=== PATIENT | male | born 1985 ===

== ENCOUNTER 2018-05-23 07:00 | Emergency (ER) | payer MEDICAID ==
[2018-05-23 07:15] VITALS: RESP 18; TEMP 97.9; O2SAT 100
[2018-05-23] MEDS ORDERED: Sodium Chloride 0.9% 1,000 ML IV STA (07:46)
[2018-05-23] MEDS ORDERED: Iohexol 240 (50 ml) PO ONE (07:52)
[2018-05-23 08:01] LABS: BASO % 0.2 % (0.0-2.0); EOS # 0.1 K/uL (0.0-0.7); EOS % 1.1 % (0.0-4.0); LYMPH # 0.7 K/uL (1.0-4.3); LYMPH % 9.6 % (20.0-40.0); MEAN CELL VOLUME 90.9 fl (80.0-94.0); MEAN CORPUSCULAR HEMOGLOBIN 30.4 pg (27.0-31.0); MEAN CORPUSCULAR HGB CONC 33.4 g/dL (33.0-37.0); MEAN PLATELET VOLUME 7.9 fl (7.2-11.7); MONO # 0.4 K/uL (0.0-0.8); MONO % 5.8 % (0.0-10.0); NEUT # 5.8 K/uL (1.8-7.0); NEUT % 83.3 % (50.0-75.0); PLATELET COUNT 252 K/uL (130-400); RBC 4.94 Mil/uL (4.40-5.90); RED CELL DISTRIBUTION WIDTH 13.1 % (11.5-14.5); WHITE BLOOD COUNT 6.9 K/uL (4.8-10.8)
[2018-05-23] MEDS ORDERED: Iohexol 240 (50 ml) ONE (08:06)
[2018-05-23 08:18] LABS: ALB/GLOB RATIO 1.4 (1.0-2.1); ALBUMIN 4.4 g/dL (3.5-5.0); ALT/SGPT 34 U/L (21-72); AST/SGOT 22 U/L (17-59); BLOOD UREA NITROGEN 28 mg/dl (9-20); CALCIUM 9.3 mg/dL (8.4-10.2); GFR NON-AFRICAN AMERICAN > 60; LIPASE 79 U/L (23-300)
[2018-05-23] MEDS ORDERED: Iohexol 300 100 ML IJ ONE (10:22)
[2018-05-23] MEDS ORDERED: Sodium Chloride 0.9% 50 ML IV ONE (10:22)
[2018-05-23 11:27] LABS: EOSINOPHIL 1 % (0-7); LYMPHOCYTE 11 % (20-50); MONOCYTE 3 % (0-10); NEUTROPHIL 85 % (42-75); PLATELET ESTIMATE NORMAL (NORMAL); TOTAL CELLS COUNTED 100
--- NOTE | 2018-05-23 11:28 | CT ---
Date of service: 05/23/2018 PROCEDURE: CT Abdomen and Pelvis with contrast HISTORY: vomiting RLQ pain COMPARISON: None. TECHNIQUE: Contrast dose: 95 cc Omnipaque 300 with 40 cc saline flush Radiation dose: Total exam DLP = 273.39 mGy-cm. This CT exam was performed using one or more of the following dose reduction techniques: Automated exposure control, adjustment of the mA and/or kV according to patient size, and/or use of iterative reconstruction technique. FINDINGS: LOWER THORAX: Unremarkable. LIVER: Mild diffuse fatty infiltration of the liver suggested No gross lesion or ductal dilatation. GALLBLADDER AND BILE DUCTS: Unremarkable. PANCREAS: Unremarkable. No gross lesion or ductal dilatation. SPLEEN: Unremarkable. ADRENALS: Unremarkable. No mass. KIDNEYS AND URETERS: There is minimal asymmetrical fullness to the right intra and extra renal pelvis no obstructing calculus here seen. The distal ureters are difficult to track completely more distally VASCULATURE: Bilateral hemipelvic phleboliths. No distal hydroureter to suggest otherwise. No aortic aneurysm. No aortic atherosclerotic calcification or mural plaque present. BOWEL: Some of the proximal small bowel loops minimal fullness and minimal prominence to their valvular con of on the appearance-no high-grade obstruction seen. A mild enteritis here is 1 consideration. Top normal variant is another. No obstruction. No gross eccentric mural thickening. APPENDIX: Normal appendix. PERITONEUM: Unremarkable. No free fluid. No free air. LYMPH NODES: Unremarkable. No enlarged lymph nodes. BLADDER: Unremarkable. REPRODUCTIVE: Prostate is unremarkable. There is asymmetry of the visualized portions of the scrotal contents. The right being more conspicuous and prominent-for this consider scrotal ultrasound. BONES: No acute fracture. OTHER FINDINGS: None. IMPRESSION: No CT evidence of appendicitis appreciated. Minimal-mild right intra and extra renal pelviectasis without obstructing calculus seen. Correlate clinically Other findings as above.
--- NOTE | 2018-05-23 11:55 | ED PDOC ---
HPI: Abdomen Time Seen by Provider: 05/23/18 07:29 Chief Complaint (Nursing): GI Problem Chief Complaint (Provider): vomiting abd pain History Per: Patient History/Exam Limitations: no limitations Location Of Pain/Discomfort: Diffuse, RLQ Quality Of Discomfort: Cramping Associated Symptoms: Chills, Nausea, Vomiting, Diarrhea, Loss Of Appetite Last Bowel Movement: Today Additional Complaint(s): 32yo male c/o abd pain R>L ongoing since last night associated w vomiting and loss appetite, loose stools, chills last night. Thinks possibly related to something he ate in half-way. Past Medical History Reviewed: Historical Data, Nursing Documentation, Vital Signs Vital Signs: Last Vital Signs Temp 97.9 F 05/23/18 07:23 Pulse 85 05/23/18 07:23 Resp 18 05/23/18 07:23 BP 114/80 05/23/18 07:23 Pulse Ox 100 05/23/18 07:23 - Medical History PMH: No Chronic Diseases - Surgical History Surgical History: Denies: Appendectomy - Family History Family History: States: Unknown Family Hx - Living Arrangements Living Arrangements: Other - Social History Alcohol: None - Home Medications Home Medications: Ambulatory Orders Medication Instructions Recorded Ibuprofen [Motrin Tab] 600 mg PO Q6 PRN #15 tab 05/23/18 Ondansetron ODT [Zofran ODT] 4 mg PO Q6 PRN #10 odt 05/23/18 - Allergies Allergies/Adverse Reactions: Allergies Allergy/AdvReac Type Severity Reaction Status Date / Time No Known Allergies Allergy Verified 05/23/18 07:25 Review of Systems Constitutional: Positive for: Chills ENT: Negative for: Nose Discharge Cardiovascular: Negative for: Chest Pain Respiratory: Negative for: Cough, Shortness of Breath Gastrointestinal: Positive for: Nausea, Abdominal Pain Genitourinary Male: Negative for: Dysuria Musculoskeletal: Negative for: Neck Pain Skin: Negative for: Rash Neurological: Negative for: Weakness Psych: Negative for: Anxiety Physical Exam - Reviewed Nursing Documentation Reviewed: Yes Vital Signs Reviewed: Yes - Physical Exam Appears: Positive for: Well, Non-toxic, No Acute Distress Head Exam: Positive for: ATRAUMATIC, NORMAL INSPECTION, NORMOCEPHALIC Skin: Positive for: Normal Color, Warm, DRY Eye Exam: Positive for: EOMI, Normal appearance, PERRL ENT: Positive for: Normal ENT Inspection Neck: Positive for: Normal, Painless ROM Cardiovascular/Chest: Positive for: Regular Rate, Rhythm Respiratory: Positive for: CNT, Normal Breath Sounds Gastrointestinal/Abdominal: Positive for: Soft, Tenderness (R>L). Negative for: Guarding Back: Positive for: Normal Inspection Extremity: Positive for: Normal ROM Neurologic/Psych: Positive for: Alert, Oriented - Laboratory Results Result Diagrams: 05/23/18 07:54 05/23/18 07:54 Lab Results: Total Bilirubin 0.6 mg/dl (0.2-1.3) 05/23/18 07:54 AST 22 U/L (17-59) 05/23/18 07:54 ALT 34 U/L (21-72) 05/23/18 07:54 Alkaline Phosphatase 61 U/L (38-126) 05/23/18 07:54 Total Protein 7.5 G/DL (6.3-8.2) 05/23/18 07:54 Albumin 4.4 g/dL (3.5-5.0) 05/23/18 07:54 Globulin 3.1 gm/dL (2.2-3.9) 05/23/18 07:54 Albumin/Globulin Ratio 1.4 (1.0-2.1) 05/23/18 07:54 Lipase 79 U/L (23-300) 05/23/18 07:54 - ECG O2 Sat by Pulse Oximetry: 100 Pulse Ox Interpretation: Normal Medical Decision Making Medical Decision Making: labs unremarkable Accession No. : [id number] Patient Name / ID : FAY GOLD / [id number] Exam Date : 05/23/2018 10:33:04 ( Approved ) Study Comment : Sex / Age : M / 32Y Creator : Hazel Garcia Dictator : Hazel Garcia Community Health Advocate : Rice Farmer : Hazel Garcia Approver2 : Report Date : 05/23/2018 11:24:46 My Comment : Date of service: 05/23/2018 PROCEDURE: CT Abdomen and Pelvis with contrast HISTORY: vomiting RLQ pain COMPARISON: None. TECHNIQUE: Contrast dose: 95 cc Omnipaque 300 with 40 cc saline flush Radiation dose: Total exam DLP = 273.39 mGy-cm. This CT exam was performed using one or more of the following dose reduction techniques: Automated exposure control, adjustment of the mA and/or kV according to patient size, and/or use of iterative reconstruction technique. FINDINGS: LOWER THORAX: Unremarkable. LIVER: Mild diffuse fatty infiltration of the liver suggested No gross lesion or ductal dilatation. GALLBLADDER AND BILE DUCTS: Unremarkable. PANCREAS: Unremarkable. No gross lesion or ductal dilatation. SPLEEN: Unremarkable. ADRENALS: Unremarkable. No mass. KIDNEYS AND URETERS: There is minimal asymmetrical fullness to the right intra and extra renal pelvis no obstructing calculus here seen. The distal ureters are difficult to track c ompletely more distally VASCULATURE: Bilateral hemipelvic phleboliths. No distal hydroureter to suggest otherwise. No aortic aneurysm. No aortic atherosclerotic calcification or mural plaque present. BOWEL: Some of the proximal small bowel loops minimal fullness and minimal prominence to their valvular con of on the appearance-no high-grade obstruction seen. A mild enteritis here is 1 consideration. Top normal variant is another. No obstruction. No gross eccentric mural thickening. APPENDIX: Normal appendix. PERITONEUM: Unremarkable. No free fluid. No free air. LYMPH NODES: Unremarkable. No enlarged lymph nodes. BLADDER: Unremarkable. REPRODUCTIVE: Prostate is unremarkable. There is asymmetry of the visualized portions of the scrotal contents. The right being more conspicuous and prominent-for this consider scrotal ultrasound. BONES: No acute fracture. OTHER FINDINGS: None. IMPRESSION: No CT evidence of appendicitis appreciated. Minimal-mild right intra and extra renal pelviectasis without obstructing calculus seen. Correlate clinically Other findings as above. denies testicular pain Recommended outpatient US testes nonemergently Tolerating PO in ED Rx zofran and motrin, bland diet, followup PMD Disposition - Clinical Impression Clinical Impression: Gastroenteritis - Patient ED Disposition Is Patient to be Admitted: No Counseled Patient/Family Regarding: Studies Performed, Diagnosis, Need For Followup - Disposition Referrals: [facility] [Outside] Disposition: Routine/Home Disposition Time: 11:54 Additional Instructions: Recommend outpatient ultrasound of your testicles for slight asymmetry seen on CT scan. Followup with clinic for scheduling of this. Return to ER for any worse or new symptoms Prescriptions: Ibuprofen [Motrin Tab] 600 mg PO Q6 PRN #15 tab PRN Reason: Pain, Moderate (4-7) Ondansetron ODT [Zofran ODT] 4 mg PO Q6 PRN #10 odt PRN Reason: Nausea/Vomiting Instructions: Gastroenteritis (ED) Forms: [employer] (Japanese)
[2018-05-23 12:31] VITALS: BP 110/66; PULSE 67
== END 2018-05-23 11:55 | disposition home or self-care (01) ==
LOC: H.ER 07:00
DX: K52.9 Noninfective gastroenteritis and colitis, unspecified (principal)
CPT/HCPCS: 74177; 80053; 80320; 83690; 85025; 96361; 96374; 96375; 99284; J1885; J2405; J7030; Q9966; Q9967

== ENCOUNTER 2018-05-24 11:30 | Emergency (ER) | payer MEDICAID ==
[2018-05-24 11:38] VITALS: BMI 22.7
[2018-05-24 11:40] VITALS: O2SAT 100
--- NOTE | 2018-05-24 13:23 | ED PDOC ---
HPI: General Adult Time Seen by Provider: 05/24/18 12:09 Chief Complaint (Nursing): Dizziness/Lightheaded History Per: Patient Additional Complaint(s): Pt. states for the past several days he's had continued nausea with vomiting and today he developed diarrhea. Also reports having several week hx of b/l testicular itching with mild pain. Of note, pt. states he was in ED yesterday for same symptoms and had blood work, CT abd/pelvis done, and prescribed Zofran. States he took zofran last night. Reports that he was able to eat cereal and drink coffee without any vomiting but still felt nauseous and itchy. Has been using Nystatin cream without relief. Pt. further reports after being discharge from the hospital yesterday he developed L sided chest pain which lasted for several minutes then resolved spontaneously. Pt. states he currently lives in a fci and believes all his symptoms are due to living in a fci. Denies fever, chills, abd pain, penile discharge, incontinence, melena, hematochezia, BRBPR, hematemesis, SOB, palpitations. Currently without any chest pain or SOB. Past Medical History Reviewed: Historical Data, Nursing Documentation, Vital Signs Vital Signs: Last Vital Signs Temp 97.5 F L 05/24/18 11:38 Pulse 62 05/24/18 11:38 Resp 17 05/24/18 11:38 BP 117/73 05/24/18 11:38 Pulse Ox 100 05/24/18 11:38 - Medical History PMH: Anxiety, Depression, Migraine, Seizures Denies: Chronic Kidney Disease - Surgical History Surgical History: Denies: Appendectomy - Family History Family History: States: No Known Family Hx - Living Arrangements Living Arrangements: Other (homeless) - Social History Current smoker - smoking cessation education provided: No Drugs: Cocaine (last use 5-7 days ago) - Home Medications Home Medications: Ambulatory Orders Medication Instructions Recorded Ondansetron ODT [Zofran ODT] 4 mg PO Q6 PRN #10 odt 05/23/18 RX: Ibuprofen [Motrin Tab] 600 mg PO Q6 PRN #15 tab 05/23/18 RX: hydrOXYzine HCl [Atarax] 1 tab PO Q8H PRN #10 tab 05/24/18 - Allergies Allergies/Adverse Reactions: Allergies Allergy/AdvReac Type Severity Reaction Status Date / Time No Known Allergies Allergy Verified 05/23/18 07:25 Review of Systems ROS Statement: Except As Marked, All Systems Reviewed And Found Negative Cardiovascular: Positive for: Chest Pain Gastrointestinal: Positive for: Nausea, Vomiting, Diarrhea Physical Exam - Physical Exam Appears: Positive for: Well, Non-toxic, No Acute Distress Skin: Positive for: Normal Color, Warm. Negative for: Rash Eye Exam: Positive for: Normal appearance Cardiovascular/Chest: Positive for: Regular Rate, Rhythm. Negative for: Murmur, Tachycardia, Irregularly Irregular Respiratory: Positive for: Normal Breath Sounds. Negative for: Respiratory Distress Gastrointestinal/Abdominal: Positive for: Normal Exam, Soft. Negative for: Tenderness Male Genital Exam: Positive for: normal genitalia. Negative for: lesions, scrotum tenderness (R), scrotum tenderness (L), testicular tenderness (R), testicular tenderness (L), urethral discharge Back: Negative for: L CVA Tenderness, R CVA Tenderness Neurologic/Psych: Positive for: Alert, Oriented (x3), Mood/Affect (appear anxious but is easily consolable) - Laboratory Results Result Diagrams: 05/24/18 14:17 05/24/18 14:55 - ECG ECG: Positive for: Interpreted By Me ECG Rhythm: Positive for: Sinus Rhythm. Negative for: ST/T Changes O2 Sat by Pulse Oximetry: 100 - Radiology X-Ray: Interpreted by Me (CXR) X-Ray Interpretation: No Acute Disease - Progress ED Course And Treament: Labs, testicular US, zofran 4mg IV, benadryl 50mg PO ordered. On re-evaluation, pt. seen eating. Reports nausea has resolved. Denies abd pain. Abd soft and non-tender. Informed of all results and advised to f/u with [facility] for further evaluation but is to return to ED immediately if symptoms worsen. Disposition - Clinical Impression Clinical Impression: Pruritus, Chest pain - Patient ED Disposition Is Patient to be Admitted: No - Disposition Referrals: [facility] [Outside] Disposition: Routine/Home Disposition Time: 16:15 Condition: STABLE Additional Instructions: FOLLOW UP WITH PMD FOR FURTHER EVALUATION RETURN TO ED IMMEDIATELY IF SYMPTOMS WORSEN ASIF APONTE, thank you for letting us take care of you today. Your provider was Loni Bowman MD and you were treated for ITCHINESS, FLU-LIKE SYMPTOMS,NAUSEA. The emergency medical care you received today was directed at your acute symptoms. If you were prescribed any medication, please fill it and take as directed. It may take several days for your symptoms to resolve. Return to the Emergency Department if your symptoms worsen, do not improve, or if you have any other problems. Please contact your doctor or call one of the physicians/clinics you have been referred to that are listed on the Patient Visit Information form that is included in your discharge packet. Bring any paperwork you were given at discharge with you along with any medications you are taking to your follow up visit. Our treatment cannot replace ongoing medical care by a primary care provider outside of the emergency department. Thank you for allowing the [facility] team to be part of your care today. If you had an X-Ray or CT scan: A Radiologist will review the ED reading if any change in treatment is needed we will contact you. If you had a blood, urine, or wound culture: It will take several days for the results, if any change in treatment is needed we will contact you. If you had an STI test: It will take 48 hours for the results. Please call after 1 week if you have not heard back. Prescriptions: RX: hydrOXYzine HCl [Atarax] 1 tab PO Q8H PRN #10 tab PRN Reason: Itching / Pruritus Instructions: Chest Pain That Is Not Caused by the Heart (DC), Itchy Skin Forms: [employer] (Monegasque)
[2018-05-24 14:25] LABS: BASO % 0.6 % (0.0-2.0); EOS # 0.1 K/uL (0.0-0.7); EOS % 2.6 % (0.0-4.0); HEMOGLOBIN 14.8 g/dL (12.0-18.0); LYMPH # 1.8 K/uL (1.0-4.3); LYMPH % 34.9 % (20.0-40.0); MEAN CELL VOLUME 92.3 fl (80.0-94.0); MEAN CORPUSCULAR HEMOGLOBIN 31.1 pg (27.0-31.0); MEAN CORPUSCULAR HGB CONC 33.7 g/dL (33.0-37.0); MEAN PLATELET VOLUME 8.8 fl (7.2-11.7); MONO # 0.7 K/uL (0.0-0.8); NEUT # 2.5 K/uL (1.8-7.0); NEUT % 47.9 % (50.0-75.0); NRBC % 0.1 % (0.0-0.0); RBC 4.75 Mil/uL (4.40-5.90); RED CELL DISTRIBUTION WIDTH 13.4 % (11.5-14.5); WHITE BLOOD COUNT 5.1 K/uL (4.8-10.8)
--- NOTE | 2018-05-24 14:28 | US ---
Date of service: 05/24/2018 HISTORY: b/l testicular pain TECHNIQUE: Realtime sonography through the scrotum with color and doppler flow. COMPARISON: May 23, 2018. CT abdomen and pelvis FINDINGS: RIGHT TESTICLE: Measures 2.8 x 2 x 4.3 cm. Normal echotexture and flow. RIGHT EPIDIDYMIS: Epididymal head measures 1.1 x 1.1 x 0.9 cm. Solitary simple epididymal cyst 5 x 3 mm LEFT TESTICLE: Measures 3.3 x 2 x 4.6 cm. Normal echotexture and flow. LEFT EPIDIDYMIS: Epididymal head measures 0.8 x 0.8 cm. Grossly unremarkable appearance with normal flow. HYDROCELE: Bilateral hydroceles right larger than left. VARICOCELE: None. OTHER FINDINGS: None. IMPRESSION: Negative study for epididymitis, orchitis, torsion or testicular mass. Bilateral hydroceles right larger than left.
[2018-05-24 15:31] LABS: URINE BILIRUBIN NEGATIVE (NEGATIVE); URINE BLOOD NEGATIVE (NEGATIVE); URINE CLARITY CLEAR (Clear); URINE COLOR YELLOW (YELLOW); URINE GLUCOSE (UA) NEG (NEGATIVE); URINE LEUKOCYTE ESTERASE NEG Leu/uL (Negative); URINE PROTEIN NEGATIVE (NEGATIVE); URINE UROBILINOGEN 0.2-1.0 mg/dL (0.2-1.0)
[2018-05-24 15:48] LABS: ALB/GLOB RATIO 1.3 (1.0-2.1); ALT/SGPT 34 U/L (21-72); AST/SGOT 24 U/L (17-59); BARBITURATES, UR NEGATIVE (NEGATIVE); BENZODIAZEPINES, UR NEGATIVE (NEGATIVE); BLOOD UREA NITROGEN 12 mg/dl (9-20); CALCIUM 9.4 mg/dL (8.4-10.2); GFR NON-AFRICAN AMERICAN > 60; OPIATES, UR NEGATIVE (NEGATIVE); PHENCYCLIDINE, UR NEGATIVE (NEGATIVE)
[2018-05-24] MEDS ORDERED: Sodium Chloride 0.9% 1,000 ML IV STA (15:49)
[2018-05-24 16:54] VITALS: BP 116/70; PULSE 65; RESP 18; TEMP 98.2
--- NOTE | 2018-05-25 21:14 | CARD ---
APPROVED REPORT Date of service: 05/24/2018 EKG Measurement Heart [id number] <Conclusion> Sinus bradycardia Early repolarization Otherwise normal ECG
== END 2018-05-24 16:54 | disposition home or self-care (01) ==
LOC: H.ER 11:30
DX: R07.9 Chest pain, unspecified (principal); L29.9 Pruritus, unspecified; Z86.59 Personal history of other mental and behavioral disorders
CPT/HCPCS: 80053; 80324; 80345; 80346; 80349; 80353; 80358; 80361; 81003; 83992; 84484; 85025; 93005; 93975; 96374; 99285; J2405; J7030

== ENCOUNTER 2018-06-22 12:08 | Emergency (ER) | payer MEDICAID ==
[2018-06-22 12:08] VITALS: BMI 22.7
[2018-06-22] MEDS ORDERED: Sodium Chloride 0.9% 1,000 ML IV STA (13:31)
--- NOTE | 2018-06-22 13:44 | ED PDOC ---
History of Present Illness History of Present Illness: Pt reports chills, bodyaches, sore throat and cough X 2 days. Did not take medication at home. Denies abdominal pain, vomiting, diarrhea, dysuria, hematuria. HPI: Influenza Time Seen by Provider: 06/22/18 12:20 Chief Complaint: Male Genitourinary Past Medical History Reviewed: Nursing Documentation, Vital Signs Vital Signs: Last Vital Signs Temp 99.3 F 06/22/18 12:13 Pulse 78 06/22/18 12:13 Resp 18 06/22/18 12:13 BP 112/80 06/22/18 12:13 Pulse Ox 99 06/22/18 12:13 - Medical History PMH: Anxiety, Depression, Migraine, Seizures Denies: Chronic Kidney Disease - Surgical History Surgical History: Denies: Appendectomy - Family History Family History: States: Unknown Family Hx - Social History Current smoker - smoking cessation education provided: Yes Alcohol: None - Home Medications Home Medications: Ambulatory Orders Medication Instructions Recorded Ibuprofen [Motrin Tab] 600 mg PO Q6 PRN #15 tab 05/23/18 Ondansetron ODT [Zofran ODT] 4 mg PO Q6 PRN #10 odt 05/23/18 hydrOXYzine HCl [Atarax] 1 tab PO Q8H PRN #10 tab 05/24/18 Ibuprofen [Motrin] 600 mg PO Q6H PRN #20 tab 06/22/18 Oseltamivir Phosphate [Tamiflu] 75 mg PO BID #9 capsule 06/22/18 - Allergies Allergies/Adverse Reactions: Allergies Allergy/AdvReac Type Severity Reaction Status Date / Time No Known Allergies Allergy Verified 05/23/18 07:25 Review of Systems Constitutional: Positive for: Chills. Negative for: Fever Respiratory: Positive for: Cough. Negative for: Shortness of Breath Gastrointestinal: Negative for: Nausea, Vomiting, Abdominal Pain, Diarrhea Genitourinary Male: Negative for: Dysuria, Hematuria Musculoskeletal: Positive for: Back Pain Skin: Negative for: Rash, Lesions Neurological: Negative for: Weakness, Numbness, Headache, Dizziness Physical Exam - Reviewed Nursing Documentation Reviewed: Yes Vital Signs Reviewed: Yes - Physical Exam Appears: Positive for: Well, No Acute Distress Head Exam: Positive for: ATRAUMATIC, NORMAL INSPECTION Skin: Positive for: Normal Color, Warm, Dry Eye Exam: Positive for: Normal appearance, EOMI, PERRL ENT: Positive for: Pharynx Is (Clear). Negative for: Nasal Congestion, Pharyngeal Erythema, Tonsillar Exudate Neck: Positive for: Normal, Painless ROM, Supple Cardiovascular/Chest: Positive for: Regular Rate, Rhythm Respiratory: Positive for: Normal Breath Sounds. Negative for: Rales, Rhonchi, Wheezing Gastrointestinal/Abdominal: Positive for: Normal Exam, Bowel Sounds, Soft. Negative for: Tenderness Back: Positive for: Normal Inspection Extremity: Positive for: Normal ROM Neurologic/Psych: Positive for: Alert, Oriented Medical Decision Making Medical Decision Makin yo male with chills, sore throat and bodyaches. - labs - Influenza A&B - Strep antigen - IVF - Toradol Accession No. : [id number] Patient Name / ID : FAY GOLD / [id number] Exam Date : 06/22/2018 13:24:44 ( Approved ) Study Comment : Sex / Age : M / 32Y Creator : El Kinsey MD Dictator : lE Kinsey MD Power Lineman Technician : Perinatology Physician : El Kinsey MD Approver2 : Report Date : 06/22/2018 13:53:33 My Comment : Date of service: 06/22/2018 HISTORY: Cough, fever COMPARISON: No prior. TECHNIQUE: Chest PA and lateral FINDINGS: LUNGS: No active pulmonary disease. PLEURA: No significant pleural effusion identified. No pneumothorax apparent. CARDIOVASCULAR: No aortic atherosclerotic calcification present. Normal cardiac size. No pulmonary vascular congestion. OSSEOUS STRUCTURES: No significant abnormalities. VISUALIZED UPPER ABDOMEN: Normal. OTHER FINDINGS: None. IMPRESSION: No active disease. - Laboratory Results Result Diagrams: 06/22/18 14:01 06/22/18 14:01 - ECG O2 Sat by Pulse Oximetry: 99 Disposition - Clinical Impression Clinical Impression: Influenza-like symptoms - Disposition [facility]errals: [facility] [Outside] Disposition: Routine/Home Disposition Time: 14:45 Condition: IMPROVED Prescriptions: Ibuprofen [Motrin] 600 mg PO Q6H PRN #20 tab PRN Reason: Pain, Moderate (4-7) Oseltamivir Phosphate [Tamiflu] 75 mg PO BID #9 capsule Instructions: Flu, Adult (DC) Forms: [employer] (Frisian)
--- NOTE | 2018-06-22 13:57 | RAD ---
Date of service: 06/22/2018 HISTORY: Cough, fever COMPARISON: No prior. TECHNIQUE: Chest PA and lateral FINDINGS: LUNGS: No active pulmonary disease. PLEURA: No significant pleural effusion identified. No pneumothorax apparent. CARDIOVASCULAR: No aortic atherosclerotic calcification present. Normal cardiac size. No pulmonary vascular congestion. OSSEOUS STRUCTURES: No significant abnormalities. VISUALIZED UPPER ABDOMEN: Normal. OTHER FINDINGS: None. IMPRESSION: No active disease.
[2018-06-22 14:05] LABS: BASO # 0.1 K/uL (0.0-0.2); BASO % 0.6 % (0.0-2.0); EOS % 0.3 % (0.0-4.0); HEMOGLOBIN 13.1 g/dL (12.0-18.0); LYMPH # 1.5 K/uL (1.0-4.3); LYMPH % 13.9 % (20.0-40.0); MEAN CELL VOLUME 89.5 fl (80.0-94.0); MEAN CORPUSCULAR HEMOGLOBIN 30.6 pg (27.0-31.0); MEAN CORPUSCULAR HGB CONC 34.2 g/dL (33.0-37.0); MEAN PLATELET VOLUME 7.6 fl (7.2-11.7); MONO # 1.2 K/uL (0.0-0.8); MONO % 11.4 % (0.0-10.0); NEUT # 7.9 K/uL (1.8-7.0); NEUT % 73.8 % (50.0-75.0); RBC 4.27 Mil/uL (4.40-5.90); RED CELL DISTRIBUTION WIDTH 13.1 % (11.5-14.5); WHITE BLOOD COUNT 10.7 K/uL (4.8-10.8)
[2018-06-22 14:26] LABS: ALB/GLOB RATIO 1.2 (1.0-2.1); ALBUMIN 4.2 g/dL (3.5-5.0); ALT/SGPT 21 U/L (21-72); AST/SGOT 33 U/L (17-59); BLOOD UREA NITROGEN 13 mg/dl (9-20); CALCIUM 9.4 mg/dL (8.4-10.2); GFR NON-AFRICAN AMERICAN > 60
[2018-06-22 15:26] VITALS: BP 122/68; PULSE 68; RESP 16; TEMP 99
[2018-06-24 15:52] VITALS: O2SAT 99
== END 2018-06-22 15:15 | disposition home or self-care (01) ==
LOC: H.ER 12:08
DX: J11.1 Influenza due to unidentified influenza virus with other respiratory manifestations (principal)
CPT/HCPCS: 71046; 80053; 85025; 87070; 87430; 87804; 96374; 99285; J1885; J7030

== ENCOUNTER 2018-06-23 22:11 | Emergency (ER) | payer MEDICAID ==
[2018-06-23 22:12] VITALS: BMI 22.7
[2018-06-23] MEDS ORDERED: Lidocaine 5% Patch TD STA (22:53)
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
[2018-06-23 23:34] VITALS: BP 120/88; PULSE 88; RESP 20; TEMP 99.3
[2018-06-23 23:39] VITALS: O2SAT 100
== END 2018-06-23 23:45 | disposition home or self-care (01) ==
LOC: H.ER 22:11
DX: M54.5 Low back pain (principal); G89.29 Other chronic pain; F17.200 Nicotine dependence, unspecified, uncomplicated; Z86.59 Personal history of other mental and behavioral disorders; V49.50XA Passenger injured in collision with unspecified motor vehicles in traffic accident, initial encounter

== ENCOUNTER 2018-06-25 07:30 | Emergency (ER) | payer MEDICAID ==
[2018-06-25 07:31] VITALS: BMI 22.7
[2018-06-25 07:39] VITALS: RESP 15; TEMP 98.4; O2SAT 98
[2018-06-25 07:56] VITALS: BP 114/66; PULSE 94
--- NOTE | 2018-06-25 08:25 | ED PDOC ---
HPI: Dental Pain/Injury History Per: Patient Additional Complaint(s): Pt is a 32 y/o male with hx of Gingivitis presents to ED for evaluation of Left Ear and Jaw pain. States that for the past week his left ear has been throbbing and he started experiencing Left jaw pain 2 days ago that has been gradually getting worse. He has not taken anything for the pain. He denies any recent dental procedures or tooth loss, but states he had a dental procedure 1 year ago over the same area and the pain was similar. Reports subjective fever last night. Has been tolerating fluids. Denies ear discharge, bleeding gums, or sick contacts. Of note, pt visited ED 3 days ago for flu like symptoms (cough/congestion/fever/sore throat), Rapid Strep neg, Flu neg, started on Tamiflu and states symp still persist but are improving. Denies SOB, Wheezing, CP. PMD: None <Arnulfo Woo - Last Filed: 06/25/18 09:33> <Mian Packer - Last Filed: 06/25/18 10:58> Time Seen by Provider: 06/25/18 07:59 Chief Complaint (Nursing): ENT Problem Supervising Attending Note - Supervising Attending Note The Documented history was done by the: Physician Director [employer] The documented physical exam was done by the: Physician Director [employer] The documented procedures were done by the: Physician Director [employer] - Attestation: I have personally seen and examined this patient.: Yes I have fully participated in the care of the patient.: Yes I have reviewed all pertinent clinical information, including history, physical exam and plan: Yes - Notes: Notes:: Sore throat, ear pain. <Mian Packer - Last Filed: 06/25/18 10:58> Past Medical History Reviewed: Historical Data, Nursing Documentation, Vital Signs Vital Signs: Last Vital Signs Temp 98.4 F 06/25/18 07:38 Pulse 94 H 06/25/18 07:56 Resp 15 06/25/18 07:38 BP 114/66 06/25/18 07:56 Pulse Ox 98 06/25/18 07:38 - Medical History PMH: Anxiety, Depression, Migraine, Seizures, Chronic Pain (Back) Denies: Chronic Kidney Disease - Surgical History Surgical History: Denies: Appendectomy - Family History Family History: States: Unknown Family Hx <ChiloArnulfo fernandez - Last Filed: 06/25/18 09:33> Vital Signs: Last Vital Signs Temp 98.4 F 06/25/18 07:38 Pulse 94 H 06/25/18 07:56 Resp 15 06/25/18 07:38 BP 114/66 06/25/18 07:56 Pulse Ox 98 06/25/18 09:47 <Mian Packer - Last Filed: 06/25/18 10:58> - Home Medications Home Medications: Ambulatory Orders Medication Instructions Recorded Ibuprofen [Motrin Tab] 600 mg PO Q6 PRN #15 tab 05/23/18 Ondansetron ODT [Zofran ODT] 4 mg PO Q6 PRN #10 odt 05/23/18 hydrOXYzine HCl [Atarax] 1 tab PO Q8H PRN #10 tab 05/24/18 Ibuprofen [Motrin] 600 mg PO Q6H PRN #20 tab 06/22/18 Oseltamivir Phosphate [Tamiflu] 75 mg PO BID #9 capsule 06/22/18 Ibuprofen [Motrin] 600 mg PO TID 7 Days tab 06/25/18 Penicillin VK [Penicillin VK Tab] 500 mg PO QID 7 Days tab 06/25/18 - Allergies Allergies/Adverse Reactions: Allergies Allergy/AdvReac Type Severity Reaction Status Date / Time No Known Allergies Allergy Verified 06/25/18 07:57 Review of Systems Constitutional: Positive for: Fever (subjective), Chills ENT: Positive for: Ear Pain Cardiovascular: Negative for: Chest Pain Respiratory: Negative for: Shortness of Breath, Hemoptysis Gastrointestinal: Negative for: Nausea, Vomiting <Arnulfo Woo - Last Filed: 06/25/18 09:33> Physical Exam - Physical Exam Appears: Positive for: No Acute Distress Head Exam: Positive for: ATRAUMATIC Skin: Positive for: Normal Color. Negative for: Diaphoresis Eye Exam: Positive for: Normal appearance, EOMI ENT: Positive for: TM Is/Are (Bilateral- pearly manriquez, good light reflex, in tact, ear canal normal), Nasal Congestion, Pharyngeal Erythema (mild), Other (Mouth-no cavities, posterior left gum mildly swollen, erythematous, and tendern to touch, non fluctuating. ). Negative for: Tonsillar Exudate (Tonsills normal size), Tonsillar Swelling Neck: Positive for: Normal, Painless ROM (no lymphadenopathy ) Cardiovascular/Chest: Positive for: Regular Rate, Rhythm Respiratory: Positive for: Normal Breath Sounds. Negative for: Accessory Muscle Use, Rales, Wheezing Gastrointestinal/Abdominal: Positive for: Normal Exam, Bowel Sounds, Soft. Negative for: Tenderness Extremity: Positive for: Normal ROM Neurologic/Psych: Positive for: Alert, Oriented <Arnulfo Woo - Last Filed: 06/25/18 09:33> - Physical Exam ENT: Positive for: Nasal Congestion, Pharyngeal Erythema Neck: Positive for: Normal, Painless ROM Cardiovascular/Chest: Positive for: Regular Rate, Rhythm <Mian Packer - Last Filed: 06/25/18 10:58> - ECG O2 Sat by Pulse Oximetry: 98 <Arnulfo Woo - Last Filed: 06/25/18 09:33> - Progress ED Course And Treament: 1057: Pt. already on tamiflu. No tonsilar deviation. AAOx3. Will tx for dental infection. Fu with dental clinic. Pain controlled. <Mian Packer - Last Filed: 06/25/18 10:58> Medical Decision Making Medical Decision Making: Likely periodonitis, no abscess on exam. Discussed need for f/u with Dentist with patient. No systemic signs Afebrile, hemodynamically stable. Penicillin V 500mg and Motrin given with contacts to Dentist. <Arnulfo Woo - Last Filed: 06/25/18 09:33> Disposition - Disposition Disposition: Routine/Home Disposition Time: 09:47 <Arnulfo Woo - Last Filed: 06/25/18 09:33> <Mian Packer - Last Filed: 06/25/18 10:58> - Clinical Impression Clinical Impression: Dental infection - Disposition Referrals: [facility] [place] [Outside] - 06/26/18 Condition: STABLE Additional Instructions: Return if not better in 3 days. [facility] and [place], [place] [address] Telephone - A [facility] care clinic. Dental care is provided. Families in [place] can pay their bills using government health insurance such as Medicaid or Medicare. Prescriptions: Ibuprofen [Motrin] 600 mg PO TID 7 Days tab Penicillin VK [Penicillin VK Tab] 500 mg PO QID 7 Days tab Instructions: Dental Pain (DC) Forms: [facility] (Gibraltarian)
== END 2018-06-25 10:56 | disposition home or self-care (01) ==
LOC: H.ER 07:30
DX: K04.7 Periapical abscess without sinus (principal); F32.9 Major depressive disorder, single episode, unspecified; F41.9 Anxiety disorder, unspecified; G89.29 Other chronic pain